=== PATIENT | female | born 1965 | race Caucasian/White ===

== ENCOUNTER → 2020-09-27 07:57 | Outpatient (BNVA) | payer OTHER, SELFPAY | PROVIDERS: Visit Provider Obstetrics & Gynecology ==

== ENCOUNTER 2020-10-06 14:50 | Outpatient (REF) | payer OTHER, SELFPAY ==
--- NOTE | ~2020-10-06 | US_ITS ---
EXAMINATION: PELVIC ULTRASOUND CLINICAL INFORMATION: Pain COMPARISON: None TECHNIQUE: Transabdominal and transvaginal pelvic ultrasound was performed. Transvaginal exam was performed for better visualization of the uterus and ovaries. FINDINGS: The uterus is anteverted and measures 5.3 x 2.4 x 3.3 cm in dimension. There are 2 small hypoechoic lesions suggestive of small cysts in the right uterine body measuring 4 mm. No other focal uterine lesion is seen. Endometrial thickness is normal measuring 0.2 cm. The ovaries are normal. The right ovary measures 1.4 x 2.7 x 1.1 cm and the left ovary measures 1.3 x 0.9 x 0.8 cm. There is no fluid in the pelvis. US/US pelvic and transvaginal IMPRESSION: 2 small uterine cysts. Otherwise unremarkable exam.
== END 2020-10-06 14:51 | disposition home or self-care (01) ==
LOC: HO.US 14:50
PROVIDERS: Visit Provider Obstetrics & Gynecology
DX: R10.2 Pelvic and perineal pain (principal)
CPT/HCPCS: 76830; 76856

== ENCOUNTER → 2020-10-15 10:58 | Outpatient (BNVA) | payer OTHER, SELFPAY | PROVIDERS: Visit Provider Obstetrics & Gynecology ==

== ENCOUNTER 2021-01-13 15:31 | Outpatient (REF) | payer OTHER, SELFPAY ==
--- NOTE | ~2021-01-13 | MM_ITS ---
EXAMINATION: MM SCREENING DIGITAL BREAST TOMOSYNTHESIS, BILATERAL CLINICAL INFORMATION: Screening. Asymptomatic. The lifetime risk of breast cancer based on the Tyrer-Cuzick Model is 12%. COMPARISON: Outside mammography: 11/26/2019, image 02/11/2017, 07/27/2016 ([facility]). TECHNIQUE: Digital breast tomosynthesis is performed in both the craniocaudal and mediolateral oblique views along with computer-aided detection (CAD). Synthesized 2D images are generated from the tomosynthesis. FINDINGS: The breasts are heterogeneously dense, which may obscure small masses (ACR BI-RADS breast composition Category c). There are no significant masses, abnormal calcifications, or other abnormalities. Breast tissue composition borders on average fibroglandular. Parenchymal pattern is similar to prior outside studies. There is no developing density. The axilla and skin contours are unremarkable. MM/MM tomosynthesis screening BI IMPRESSION: No mammographic evidence of malignancy. ASSESSMENT: BI-RADS 1: Negative RECOMMENDATION: Routine annual mammography screening. This patient's information was entered into a reminder system with a target due date for their next mammogram.
== END 2021-01-13 15:32 | disposition home or self-care (01) ==
LOC: HO.MAMMO 15:31
PROVIDERS: PCP Internal Medicine; Visit Provider Internal Medicine
DX: Z12.31 Encounter for screening mammogram for malignant neoplasm of breast (principal)
CPT/HCPCS: 77063; 77067

== ENCOUNTER 2022-01-31 16:05 | Outpatient (REF) | payer OTHER, SELFPAY ==
--- NOTE | ~2022-01-31 | MM_ITS ---
EXAMINATION: MM SCREENING DIGITAL BREAST TOMOSYNTHESIS, BILATERAL CLINICAL INFORMATION: Screening. Asymptomatic. The lifetime risk of breast cancer based on the Tyrer-Cuzick Model is 12%. COMPARISON: Mammography: 01/13/2021; outside mammography 11/26/2019, 10/10/2017, 07/27/2016 ([facility] TECHNIQUE: Digital breast tomosynthesis is performed in both the craniocaudal and mediolateral oblique views along with computer-aided detection (CAD). Synthesized 2D images are generated from the tomosynthesis. Additional right CC view is provided. FINDINGS: The breasts are heterogeneously dense, which may obscure small masses (ACR BI-RADS breast composition Category c). Parenchymal pattern is similar to prior studies and there is no interval mass or developing density or architectural abnormality. Breast tissue composition borders on average fibroglandular. No abnormal calcifications. The axilla and skin contours are unremarkable. MM/MM tomosynthesis screening BI IMPRESSION: No mammographic evidence of malignancy. ASSESSMENT: BI-RADS 1: Negative RECOMMENDATION: Routine annual mammography screening. This patient's information was entered into a reminder system with a target due date for their next mammogram.
== END 2022-01-31 16:06 | disposition home or self-care (01) ==
LOC: HO.MAMMO 16:05
PROVIDERS: Visit Provider Internal Medicine
DX: Z12.31 Encounter for screening mammogram for malignant neoplasm of breast (principal)
CPT/HCPCS: 77063; 77067

== ENCOUNTER 2023-02-02 15:41 | Outpatient (REF) | payer OTHER, SELFPAY | END 2023-02-02 15:42 | disposition home or self-care (01) | LOC: HO.MAMMO 15:41 | PROVIDERS: PCP Nurse Practitioner Family; Visit Provider Internal Medicine | DX: Z12.31 Encounter for screening mammogram for malignant neoplasm of breast (principal) | CPT/HCPCS: 77063; 77067 ==

== ENCOUNTER → 2023-02-02 16:15 | Outpatient (BNV) | payer OTHER, SELFPAY | PROVIDERS: PCP Nurse Practitioner Family; Visit Provider Radiology Diagnostic Radiology | DX: Z12.31 Encounter for screening mammogram for malignant neoplasm of breast (principal) | CPT/HCPCS: 77063; 77067 ==

== ENCOUNTER 2024-02-12 15:50 | Outpatient (REF) | payer OTHER, SELFPAY ==
--- NOTE | ~2024-02-12 | MM_ITS ---
EXAMINATION: MM SCREENING DIGITAL BREAST TOMOSYNTHESIS, BILATERAL CLINICAL INFORMATION: Screening. Asymptomatic. COMPARISON: Mammography: Comparison is made with available priors TECHNIQUE: Digital breast mammography with tomosynthesis is performed in both the craniocaudal and mediolateral oblique views along with computer-aided detection (CAD). FINDINGS: The breasts are heterogeneously dense, which may obscure small masses (ACR BI-RADS breast composition Category c). There are no significant masses, abnormal calcifications, or other abnormalities. MM/MM tomosynthesis screening BI IMPRESSION: No mammographic evidence of malignancy. ASSESSMENT: BI-RADS BI-RADS 1 - Negative RECOMMENDATION: Routine annual mammography screening. 1 year F/U This examination should not preclude the clinical evaluation of a suspicious palpable abnormality. This patient's information was entered into a reminder system with a target due date for their next mammogram. Electronically signed by: Megan Ross DO 02/21/2024 08:17 AM MATHIEU
== END 2024-02-12 15:51 | disposition home or self-care (01) ==
LOC: HO.MAMMO 15:50
PROVIDERS: PCP Internal Medicine; Visit Provider Internal Medicine
DX: Z12.31 Encounter for screening mammogram for malignant neoplasm of breast (principal)
CPT/HCPCS: 77063; 77067

== ENCOUNTER → 2024-02-12 16:00 | Outpatient (BNV) | payer OTHER, SELFPAY | PROVIDERS: PCP Internal Medicine; Visit Provider Internal Medicine | DX: Z12.31 Encounter for screening mammogram for malignant neoplasm of breast (principal) | CPT/HCPCS: 77063; 77067 ==

== ENCOUNTER 2025-02-13 15:58 | Outpatient (REF) | payer OTHER, SELFPAY ==
--- NOTE | ~2025-02-13 | MM_ITS ---
EXAMINATION: MM SCREENING DIGITAL BREAST TOMOSYNTHESIS, BILATERAL CLINICAL INFORMATION: Screening. Asymptomatic. COMPARISON: Mammography: Comparison is made with available priors TECHNIQUE: Digital breast mammography with tomosynthesis is performed in both the craniocaudal and mediolateral oblique views along with computer-aided detection (CAD). FINDINGS: The breasts are heterogeneously dense, which may obscure small masses. There are no significant masses, abnormal calcifications, or other abnormalities. MM/MM tomosynthesis screening BI IMPRESSION: No mammographic evidence of malignancy. ASSESSMENT: BI-RADS Category 1: Negative RECOMMENDATION: Routine annual mammography screening. 1 year F/U This examination should not preclude the clinical evaluation of a suspicious palpable abnormality. This patient's information was entered into a reminder system with a target due date for their next mammogram. Electronically signed by: Megan Ross DO 02/17/2025 12:06 PM MATHIEU JOHNSON
--- OUTSIDE RECORDS SUMMARY | 2025-02-13 16:02 | XMS_ITS | Encounter Summary ---
Author Organization [employer] Address [address] [facility] [address] [place] [address] Care Team Providers Care Customer Assistant Name Role Phone Jeny Long DO Primary Care Provider [phone] Encounter Details Date Type Department Care Team (Late st Contact Info) Description 01/14/2025 Orders Only [facility] [address] [place] [address] Jeny Long DO [address] [place] [address] Social History Tobacco Use Types Packs/Day Years Used Date Smoking Tobacco: Never Passive Smoke Exposure: Never Smokeless Tobacco: Never Alcohol Use Standard Drinks/Week Comments Yes 0 (1 standard drink = 0.6 oz pure alcohol) Few times per month. 1-2 beers, glass of wine. Alcohol Answer Date Recorded How often do you have a drink containing alcohol ? 0 12/27/2024 How many drinks containing a lcohol do you have on a typical day when you are drinking? 0 12/27/2024 How often do you have six or more drinks on one occasion? 0 12/27/2024 Housing Stability Answer Date Recorded What is your housing situation today? I have manisharon goodrich 12/27/[address] you li ve. Do you have problems with any of the following? None of the above 12/27/2024 Food Insecurity Answer Date Recorded Within the past 12 months, y ou worried that your food would run out before you got money to buy more: Never True 12/27/2024 Within the past 12 months,th e food you bought just didn't last and you didn't have enough money to get more: Never True Transportation Answer Date Recorded In the past 12 months, has l ack of transportation kept you from medical appts, meetings, work or from getting things needed for daily living? No 12/27/2024 Intimate Partner Violence Answer Date R ecorded Within the last year, have y ou been afraid of your partner or ex-partner? 2 12/27/2024 Within the last year, have y ou been humiliated or emotionally abused in other ways by your partner or ex-partner? 2 Within the last year, have y ou been kicked, hit, slapped, or otherwise physically hurt by your partner or ex-partner? 2 12/27/2024 Within the last year, have y ou been raped or forced to have any kind of sexual activity by your partner or ex-partner? 2 12/27/2024 Utilities Answer Date Recorded In the past 12 months, has t he electric, gas, oil or water company threatened to shut off services in your home? No 12/27/2024 Depression Answer Date Recorded Patient Health Questionnaire-2 Score 0 12/27/2024 Internet Access Answer Date Recorded Internet Access Q1 Yes 12/27/2024 Internet Access Q2 Not on file 12/27/2024 Education Answer Date Recorded What is the highest level of school you have completed or the highest degree you have received? High school graduate 02/28/2024 Comments No Sex and Gender Information Value Date Recorded Sex Assigned at Female 03/15/2022 9:03 AM EST Legal Sex Female 8:40 PM EDT Gender Identity Female 03/15/2022 9:01 AM EST Sexual Orientation Straight 06/07/2022 3: 56 PM EST Occupation Industry Job Start Date Job End Date Not on file Not on file Not on file Not on file documented as of this encounter Plan of Treatment Upcoming Encounters Date Type Department Care Team (Late st Contact Info) Description 12/25/2025 3:45 PM EDT Office Visit [facility] [address] [place] [address] Jeny Long DO [address] [place] [address] documented as of this encounter Procedures Procedure Name Priority Date/Time Associated Diagnosis Comments COLOGUARD COLON CANCER SCREENING (EXTERNAL RESULTS ONLY) Routine 12/29/2024 1:47 PM EDT documented in this encounter Results * Cologuard Cancer Screening (External Result Only) (12/29/2024 1:47 PM EDT) Stool (Rectum) Jeny Long DO POINT OF CARE TEST ENTER/EDIT ORDERABLES Final Result documented in this encounter Visit Diagnoses Not on filedocumented in this encounter Care Teams Customer Assistant Relationship Specialty Start Date End Date Jeny Long DO [address] [place] [id number] PCP - General Family Medicine 04/03/24 documented as of this encounter
--- OUTSIDE RECORDS SUMMARY | 2025-02-13 16:02 | XMS_ITS | Encounter Summary ---
Author Organization [facility] Address [address] [place] [address] Phone Care Team Providers Care Hat Stock Laminating Machine Operator Name Role Phone Godwin Reed MD Primary Care Provider [phone] Pcp, Unknown Primary Care Provider UnavailKaryna Erwin MD Primary Care Provider [phone] Karyna Espinoza MD Unavailable [phone] Encounter Details Date Type Department Care Team (Late st Contact Info) Description 10/29/2019 Ancillary Orders Virtual Department [address] [place] [address] Godwin Reed MD [address] [place] [id number] Breast cancer screening by mammogram Social History Tobacco Use Types Packs/Day Years Used Date Smoking Tobacco: Never Assessed Comments No Sex and Gender Information Value Date Recorded Sex Assigned at Not on file Legal Sex Female 9:40 PM EDT Gender Identity Not on file Sexual Orientation Not on file documented as of this encounter Plan of Treatment Not on file documented as of this encounter Results * BI MAMMOGRAM SCREENING WITH TOMOSYNTHESIS WITH CAD (BILATERAL) (11/26/2019 3:19 PM EDT) Anatomical Region Laterality Modality Breast Left, Breast Right, Breast Bilateral Bila teral Mammography 11/26/2019 7:40 PM EDT Impressions 11/26/2019 7:44 PM EDT BILATERAL BREASTS: Negative, no evidence of malignancy. Normal interval follow- up is recommended in 12 months. BI-RADS: BI-RADS CATEGORY: 1 - Negative. DENSITY: The breast tissue is heterogeneously dense, which may obscure small masses Narrative 11/26/2019 7:44 PM EDT STUDY: Bilateral screening mammography with tomosynthesis and CAD TECHNIQUE: Bilateral full-field digital screening mammography is obtained and read in conjunction with computer-aided detection. Tomosynthesis as well as 2-D C view imaging were obtained. COMPARISON: Comparison made to multiple prior, most recent October 10, 2017, and most remote September 28, 2011. BREAST COMPOSITION: The breasts are heterogeneously dense, which may obscure small masses. BILATERAL BREASTS: No significant masses, calcifications or other abnormalities are seen. Godwin Reed MD IMG MG EXAMS Final Result documented in this encounter Visit Diagnoses Diagnosis Breast cancer screening by mammogram Breast cancer screening by mammogram documented in this encounter Care Teams Hat Stock Laminating Machine Operator Relationship Specialty Start Date End Date Godwin Reed MD [address] [place] [address] PCP - General Obstetrics and Gynecology 08/29/17 11/25/19 Pcp, Unknown PCP - General 11/26/19 08/07/22 Karyna Espinoza MD [address] [place] [address] PCP - General Internal Medicine 08/08/22 Karyna Espinoza MD [address] [place] [address] Insurance Assigned Provider 01/20/24 documented as of this encounter Additional Source Comments The information contained in this document represents components of the legal health record. It is not the complete legal health record.[facility]
--- OUTSIDE RECORDS SUMMARY | 2025-02-13 16:02 | XMS_ITS | Encounter Summary ---
Author Organization [facility] Address [address] [place] [id number] Phone Care Team Providers Care Correctional Captain Name Role Phone Godwin Reed MD Primary Care Provider [phone] Pcp, Unknown Primary Care Provider UnavailKaryna Erwin MD Primary Care Provider [phone] Karyna Espinoza MD Unavailable [phone] Encounter Details Date Type Department Care Team (Late st Contact Info) Description 08/29/2017 Ancillary Orders Virtual Department [address] [place] [address] Godwin Reed MD [address] [place] [phone] Breast screening Social History Tobacco Use Types Packs/Day Years Used Date Smoking Tobacco: Never Assessed Comments Unknown Sex and Gender Information Value Date Recorded Sex Assigned at Not on file Legal Sex Female 9:40 PM EDT Gender Identity Not on file Sexual Orientation Not on file documented as of this encounter Plan of Treatment Not on file documented as of this encounter Results * BI MAMMOGRAM SCREENING WITH TOMOSYNTHESIS WITH CAD (BILATERAL) (10/10/2017 7:53 AM EDT) Anatomical Region Laterality Modality Breast Left, Breast Right, Breast Bilateral Bila teral Mammography 10/10/2017 8:09 AM EDT Impressions 10/10/2017 8:13 AM EDT No mammographic change indicative of malignancy. Annual screening is recommended. BI-RADS CATEGORY: 1 - Negative. DENSITY: There are scattered fibroglandular densities. POS -[id number] Narrative 10/10/2017 8:13 AM EDT Bilateral full-field digital screening mammography is obtained and read in conjunction with computer-aided detection. Tomosynthesis as well as 2-D C view imaging of both breasts in two planes also obtained. Comparison made to multiple prior, most recent 07/27/2016, and most remote 01/11/2011. No dominant mass, architectural distortion, worrisome asymmetry, or suspicious calcification is identified. No skin or nipple finding of concern is appreciated. Procedure Note Vikash Hanks MD - 10/10/2017 Bilateral full-field digital screening mammography is obtained and read inconjunction with computer-aided detection. Tomosynthesis as well as 2-D Cview imaging of both breasts in two planes also obtained. Comparison madeto multiple prior, most recent 07/27/2016, and most remote 01/11/2011. No dominant mass, architectural distortion, worrisome asymmetry, orsuspicious calcification is identified. No skin or nipple finding ofconcern is appreciated. IMPRESSION: No mammographic change indicative of malignancy. Annual screening isrecommended. BI-RADS CATEGORY: 1 - Negative. DENSITY: There are scattered fibroglandular densities. POS -[id number] Godwin Reed MD IMG MG EXAMS Final Result documented in this encounter Visit Diagnoses Diagnosis Breast screening Breast screening, unspecified Breast screening Breast screening, unspecified documented in this encounter Care Teams Correctional Captain Relationship Specialty Start Date End Date Godwin Reed MD [address] [place] [id number] PCP - General Obstetrics and Gynecology 08/29/17 11/25/19 Pcp, Unknown PCP - General 11/26/19 08/07/22 Karyna Espinoza MD [address] [place] [id number] PCP - General Internal Medicine 08/08/22 Karyna Espinoza MD [address] [place] [phone] [email or web address] Insurance Assigned Provider 01/20/24 documented as of this encounter Additional Source Comments The information contained in this document represents components of the legal health record. It is not the complete legal health record.[facility]
--- OUTSIDE RECORDS SUMMARY | 2025-02-13 16:02 | XMS_ITS | Encounter Summary ---
Author Organization [employer] Address [address] [facility] [address] [place] [address] Care Team Providers Care Sod Cutter Name Role Phone Jeny Long DO Primary Care Provider [phone] Reason for Visit * Reason Onset Date Comments Med Refill 11/06/2024 Med Dose Change 11/06/2024 Encounter Details Date Type Department Care Team (Late st Contact Info) Description 11/06/2024 Telephone [facility] [address] [place] [address] Jeny Long DO [address] [place] [address] Med Refill; Med Dose Change Social History Tobacco Use Types Packs/Day Years Used Date Smoking Tobacco: Never Passive Smoke Exposure: Never Smokeless Tobacco: Never Alcohol Use Standard Drinks/Week Comments Yes 0 (1 standard drink = 0.6 oz pure alcohol) Few times per month. 1-2 beers, glass of wine. Housing Stability Answer Date Recorded What is your housing situation today? I have mani goodrich 09/04/[address] you li ve. Do you have problems with any of the following? None of the above 09/04/2023 Food Insecurity Answer Date Recorded Within the past 12 months, y ou worried that your food would run out before you got money to buy more: Never True 09/04/2023 Within the past 12 months,th e food you bought just didn't last and you didn't have enough money to get more: Never True Transportation Answer Date Recorded In the past 12 months, has l ack of transportation kept you from medical appts, meetings, work or from getting things needed for daily living? No 09/04/2023 Utilities Answer Date Recorded In the past 12 months, has t he electric, gas, oil or water company threatened to shut off services in your home? No 09/04/2023 Depression Answer Date Recorded Patient Health Questionnaire-2 Score 0 09/04/2023 Education Answer Date Recorded What is the [...] on file documented as of this encounter Miscellaneous Notes * Telephone Encounter - BETO Pimentel - 11/06/2024 2:38 PM EDT Routed to Dr Espinoza to advise on patients request to increase her Mounjaro dose * Telephone Encounter - Ananya Snow - 11/06/2024 2:19 PM EDT Patient called for refill of the following medication Tirzepatide (Mounjaro) 10 MG/0.5ML solution auto-injector Patient would be open to an increase at your decreation Patient reports the side effects have subsided so she is no longer dealing with any like before andbelieves it may have just been nerves due to wedding. Patient was deciding if she wanted to continue taking this medication but when she noticed that it was in fact helping her lose weight she decided to stay on the medication Patient has lost 12 lbs and her current weight as of today is 165.8 Please use the following pharmacy [id number] - [address] [address] JEROME #: [id number] documented in this encounter Plan of Treatment Upcoming Encounters Date Type Department Care Team (Late st Contact Info) Description 12/25/2025 3:45 PM EDT Office Visit [facility] [address] [place] [address] Jeny Long DO [address] [place] [address] documented as of this encounter Visit Diagnoses Not on filedocumented in this encounter Care Teams Sod Cutter Relationship Specialty Start Date End Date Jeny Long DO [address] [place] [address] PCP - General Family Medicine 04/03/24 documented as of this encounter
--- OUTSIDE RECORDS SUMMARY | 2025-02-13 16:02 | XMS_ITS | Clinical Summary ---
Author Organization [facility] Address [address] [place] [address] Phone Care Team Providers Care Job Hand Name Role Phone Karyna Espinoza MD Primary Care Provider [phone] Karyna Espinoza MD Unavailable [phone] Allergies Active Allergy Reactions Criticality Noted Date Comments Amoxicillin 04/24/2022 Other reaction(s): hives Sulfamethoxazole-Trimethopri m 04/24/2022 Other reaction(s): hives Medications ibuprofen (ADVIL,MOTRIN) 600 MG tablet TAKE ONE TABLET BY MOUTH ONE HOUR PRIOR TO DENTAL APPOINTMENT AND ONE TABLET EVERY 6 HOURS FOR PAIN 3 Active SUMAtriptan (IMITREX) 50 MG tablet 1 po PRN migraine, may repeat 1x in 24 hours Active collagen, hydrolysate, bovine, (COLLAGEN, HYDR, BOVINE,, BULK,) 100 % Powd Active magnesium hydroxide (DAUGHERTY CHEWS) 311 MG Chew Take by mouth. Act chadd phentermine 15 MG capsule Take 15 mg by mouth. 4 Active medium chain triglycerides (MCT OIL) 7.7 kcal/mL oil Take 15 mL by mouth. Active turmeric root extract 500 mg Cap tumeric Active Active Problems Problem Noted Date Diagnosed Date Gastroesophageal reflux disease without esophagi tis 06/01/2022 08/08/2022 Overview (08/08/2022): Last Assessment & Plan: Triggered by tomato sauce and bread. Encouraged to keep food log. Has been improving since starting probiotic. Will continue to discuss and monitor. Migraine with aura and witho ut status migrainosus, not intractable 06/01/2022 08/08/2022 Overview (08/08/2022): Last Assessment & Plan: Managed with Advil, but has Imitrex and Zofran if needed. Have increased to once per month from once every few months, but is decreasing in severity. Neuro exam normal. Will call clinic if migraines worsen, or continue to become more frequent. Arthritis 04/24/2022 08/08/2022 Unilateral inguinal hernia without obstruction o r gangrene 04/24/2022 08/08/2022 Obesity with body mass index 30 or greater 04/2408/08/2022 Immunizations No known immunizations Family History Medical History Relation Comments Breast cancer Neg Hx Social History Tobacco Use Types Packs/Day Years Used Date Smoking Tobacco: Never Smokeless Tobacco: Never Education Answer Date Recorded Are you interested in more education? Not on jean e 08/11/2022 Are you concerned about learning? Not on file 08/11/2022 No 08/11/2022 No 08/11/2022 Digital Access Answer Date Recorded No 09/09/2022 No 09/09/2022 Reliable internet access at home? Not on file 09/09/2022 Device with a working camera? Not on file Comments No Sex and Gender Information Value Date Recorded Sex Assigned at Not on file Legal Sex Female 9:40 PM EDT Gender Identity Not on file Sexual Orientation Not on file Last Filed Vital Signs Vital Sign Reading Time Taken Comments Blood Pressure 145/84 12/05/2023 9:11 AM EDT Pulse 68 12/05/2023 9:11 AM EDT Temperature 36.7 C (98 F) 12/05/2023 9:11 AM EDT Respiratory Rate 16 12/05/2023 9:11 AM EDT Oxygen Saturation 99% 12/05/2023 9:11 AM EDT Inhaled Oxygen Concentration - - Weight 95.3 kg (210 lb) 08/08/2022 6:34 PM EDT Height 167.6 cm (5' 6 ) 08/08/2022 6:34 PM EDT Body Mass Index 33.89 08/08/2022 6:34 PM EDT Plan of Treatment Health Maintenance Due Date Last Done Comments DEPRESSION SCREENING 1977 HEPATITIS C SCREENING 12/23/1983 HIV ONE-TIME SCREENING (18-6 5 YEARS) 12/23/1983 PAP SMEAR 1986 SMOKING STATUS SCREENING (On ce After 26 Yrs) 12/23/1991 SCREENING FOR DIABETES 2000 COLOGUARD 2010 COLONOSCOPY 2010 COLORECTAL CANCER SCREENING 2010 FIT TEST 2010 FOBT 2010 SIGMOIDOSCOPY 2010 VIRTUAL COLONOSCOPY 2010 PNEUMOCOCCAL VACCINES (50+ years) (1 of 1 - PCV) 12/23/2015 MAMMOGRAM 11/25/2021 11/26/2019, 11/26/2019, 10/10/2017 INFLUENZA VACCINE (#1) 2024 , 01/11/2021 COVID-19 VACCINE (4 - 2024-2 6 season) 2024 03/22/2021, 08/22/2020, 08/01/2020 LIPID PANEL 01/11/2028 01/10/2023 Adult Td,Tdap Booster 09/03/2033 09/04/2023 RSV VACCINE (1 - 1-dose 75+ series) 2040 ZOSTER VACCINES Completed 10/03/2021, 05/20/2021 HEPATITIS A VACCINES Aged Out No long er eligible based on patient's age to complete this topic HIB VACCINES Aged Out No longer eligi ble based on patient's age to complete this topic MENINGOCOCCAL VACCINES (ACWY) Aged Out No longer eligible based on patient's age to complete this topic MENINGOCOCCAL VACCINES (B) Aged Out N o longer eligible based on patient's age to complete this topic Medical Devices Not on file Procedures Procedure Name Priority Date/Time Associated Diagnosis Comments BI MAMMOGRAM SCREENING WITH TOMOSYNTHESIS WITH CAD (BILATERAL) Routine 11/26/2019 3:19 PM EDT Breast cancer screening by mammogram from Last 3 Months or Most Recently Relevant to Health Maintenance Results * BI MAMMOGRAM SCREENING WITH TOMOSYNTHESIS [...] masses, calcifications or other abnormalities are seen. us Godwin Reed MD IMG MG EXAMS Final Result from Last 3 Months or Most Recently Relevant to Health Maintenance Insurance HMO Member Subscriber Plan / Payer (Ef fective 2017-Present) Name:Faina Caballero Relation to Subscriber:Self Name:Faina Caballero Payer ID:Not on file Type:HMO [address]: [address] POS EPO [facility] [place] [address] [place] [address] [place] [address] [place] [address] HMO [facility] EPO [facility] HMO O Member Subscriber Plan / Payer (Ef fective 2017-Present) Name:Faina Caballero Relation to Subscriber:Self Name:Faina Caballero Payer ID:Not on file Type:O Address: [address] POS EPO O Member Subscriber Plan / Payer (Ef fective 2017-Present) Name:Faina Caballero Relation to Subscriber:Self Name:Faina Caballero Payer ID:Not on file Type:O Address: [address] POS EPO [facility] HMO [facility] POS EPO Care Teams Job Hand Relationship Specialty Start Date End Date Karyna Espinoza MD [address] [place] [address] PCP - General Internal Medicine 08/08/22 Karyna Espinoza MD [address] [place] [address] Insurance Assigned Provider 01/20/24 Additional Source Comments The information contained in this document represents components of the legal health record. It is not the complete legal health record.[facility]
--- OUTSIDE RECORDS SUMMARY | 2025-02-13 16:02 | XMS_ITS | Encounter Summary ---
Author Organization [employer] Address [address] [facility] 7 [place] [address] Care Team Providers Care User Interface Engineer Name Role Phone Jeny Long DO Primary Care Provider [phone] Encounter Details Date Type Department Care Team (Late st Contact Info) Description 01/14/2025 Results Follow-Up [facility] MEDICAL [address] [place] [address] Jeny Long DO [address] [place] [address] Cologuard Cancer Screening (External Result Only) Social History Tobacco Use Types Packs/Day Years [...] your housing situation today? I have mani kp 12/27/[address] you li [...] 12/25/2025 3:45 PM EDT Office Visit Kristen [facility] [address] [place] [address] Jeny Long DO [address] [place] [address] documented as of this encounter Visit Diagnoses Not on filedocumented in this encounter Care Teams User Interface Engineer Relationship Specialty Start Date End Date Jeny Long DO [address] [place] [address] PCP - General Family Medicine 04/03/24 documented as of this encounter
--- OUTSIDE RECORDS SUMMARY | 2025-02-13 16:02 | XMS_ITS | Clinical Summary ---
Author Organization [employer] Address [address] [place] [address] 7 [place] [address] Care Team Providers Care Traveler Changer Name Role Phone Jeny Long DO Primary Care Provider [phone] Allergies Active Allergy Reactions Criticality Noted Date Comments Amoxicillin 04/24/2022 Other reaction(s): hives Sulfamethoxazole-Trimethopri m 04/24/2022 Other reaction(s): hives Medications SUMAtriptan (Imitrex) 50 MG tablet As needed Active Magnesium Hydroxide (MAGNESIA PO) Take by mouth. A ctive Collagen Hydrolysate powder Active Tirzepatide (Mounjaro) 10 MG/0.5ML solution auto-injectorInd ications:Type 2 diabetes mellitus without complication, without long-term current use of insulin (HCC) Inject 10 mg under the skin 1 (one) time per week. 2 mL 3 12/05/19 25 Active polyethylene glycol, PEG, 3350 (MiraLax) 17 GM/SCOOP powderIndication s:Drug-induced constipation Take 17 g by mouth if needed each day (constipation). 527 g 2 12/20/19 25 Active nitrofurantoin, macrocrystal-mon ohydrate, (Macrobid) 100 MG capsule Take 100 mg by mouth every 12 (twelve) hours. 12/23/19 25 Active estradiol (Estrace) 0.1 MG/GM vaginal creamIndications :Frequent UTI 0.5 g intravaginally twice per week 42.5 g 12/28/19 25 Active phenazopyridine (Pyridium) 100 MG tabletIndication s:Frequent UTI Take 1 tablet (100 mg) by mouth if needed in the morning, at noon, and at bedtime for bladder spasms. 30 tablet 12/28/19 25 025 Active Problems Problem Noted Date Diagnosed Date Overweight with body mass in dex (BMI) of 28 to 28.9 in adult 01/30/2024 Colitis 09/04/2023 Overview (09/04/2023): Images from the original note were not included. 02/08/2016: Colon cancer screening 09/04/2023 Overview (09/04/2023): Images from the original note were not included. Adrien Andrade Colonoscopy 02/07/2016: RANDA (obstructive sleep apnea) 08/02/2023 Overview (09/04/2023): Images from the original note were not included. Uses CPAP machine nightly. Engaged with sleep medicine. Type 2 diabetes mellitus wit hout complication, without long-term current use of insulin 01/17/2023 Overview (09/04/2023): Lab Results Component Value Date HGBA1C 6.5 (H) 01/10/2023 Declined medication - wanted to focus on lifestyle first. Engaged with weight management - lost 36lbs! Intermittent fasting 29/11 schedule. Reinforced lifestyle changes - eating well and exercise. Due for labs. Foot exam: 09/04/23. No loss of protective sensation. Encounter to discuss test results 01/17/2023 Overview (02/18/2023): All available lab results reviewed. Given time to ask questions and discuss health implications. Snoring 01/08/2023 Overview (01/08/2023): Boyfriend telling her she has started to snore. Feeling lethargic during the day, not falling asleep unintentionally. Discussed options - agreeable to sleep study referral. Cystitis 08/11/2022 Assessment & Plan (08/11/2022 5:13 PM EDT): UA with Leuks 1+. Will send for culture. Discussed options, wait for culture results or treat empirically. Pt would like to treat. Discussed treatment options. Will treat with Macrobid. Reviewed medication, administration, and potential side effects. Routine general medical exam ination at a health care facility 06/01/2022 Overview (09/04/2023): CPE done 09/04/23. HEALTH CARE MAINTENANCE: Colonoscopy (age 45-75): 2016, Adrien Andrade. 10 year recall. Mammogram (age 40-74): 2022 - goes yearly - [facility] [place]. AAA Screen (Fam Hx AAA): No known family hx. LDCT (smoke >30 pack year, age 55-80): Never smoker. DEXA (age 60 with RF, age 65): Age 57. CIVIL DIVISION DEPUTY SHERIFF: Outside CIVIL DIVISION DEPUTY SHERIFF: [facility] - Dr. Reed. LMP: Menopause - Age 47. No vaginal bleeding since that time. Last PAP Smear: Yearly. Years ago was abnormal, but multiple normal exams since that time. EYES: Every 2 years. DENTAL: Every 3 months. DIET: Intermittent fasting. Chicken, fish, vegetables. Avoids sugar, processed foods. Drinking lots of water. Engaged with body joiner. EXERCISE: Walking, biking, lifting weights. Floor strengthening. IMMUNIZATIONS: Tetanus (every 10 years): Not sure. No record in UTIS. Done today in clinic. Pneumococcal (age 65): Age 57. Shingrix (age 50): x2, in 2021. COVID: x 3, 2020. No boosters, does not want. FLU: 04/2023. Migraine with aura and witho ut status migrainosus, not intractable 06/01/2022 Assessment & Plan (06/01/2022 12:15 PM EST): Managed with Advil, but has Imitrex and Zofran if needed. Have increased to once per month from once every few months, but is decreasing in severity. Neuro exam normal. Will call clinic if migraines worsen, or continue to become more frequent. Unilateral inguinal hernia without obstruction o r gangrene 04/24/2022 Arthritis 04/24/2022 Overview (02/18/2023): Discussed Arthritis treatment and OTC pain management. Reviewed NSAID use and safety. Resolved Problems Problem Noted Date Diagnosed Date Resolved Date BMI 33.0-33.9,adult 03/02/2023 01/30/20 24 Overview (03/02/2023): Highest weight: 225 Comorbidities: Type 2 DM Dietary plan: intermittent fasting, moderate carbs Medications; none Exercise: walking daily Obesity, unspecified 04/24/2022 023 Obesity with body mass index 30 or greater 04/24/2022 01/30/2024 Overview (01/08/2023): Baseline weight 170lbs 7 years ago. Now around 212lbs. Has tried intermittent fasting, was going well but stopped. Feeling lethargic, worsening arthritis - both of which pt attributes to weight gain. Discussed options - will check labs. Has been years since labs have been done. Agreeable to referral to weight management. Diet and exercise counseling done 01/08/23. Assessment & Plan (01/08/2023 6:42 PM EDT): I suggest a balanced diet of fruits, vegetables, whole grains, lean proteins, and healthy fats while limiting processed foods, added sugars, and unhealthy fats. Small, consistent changes can reduce chronic disease risks. Track your meals with a food diary, be mindful of portion sizes, and address barriers to healthy eating. Engage in both aerobic and strength exercises, aiming for 150 minutes of moderate- intensity activity weekly, with two strength-training sessions. Choose enjoyable workouts and integrate physical activities like taking stairs into your day-to-day life. Encounters Date Type Department Care Team Description 01/14/2025 Results Follow-Up [facility] [address] [place] [address] Jeny Long DO Cologuard Cancer Screening (External Result Only) 01/14/2025 Orders Only [facility] [address] [place] [address] Jeny Long DO 12/27/2024 8:30 AM EDT Office Visit [facility] [address] [place] [address] Karyna Espinoza MD Frequent UTI (Primary Dx); Other migraine without status migrainosus, not intractable 12/23/2024 Orders Only [facility] Information Management [address] [place] [address] Jeny Long DO 12/23/[address] [address] Jeny Long DO UTI; hospital discharge, obtain hospital discharge 12/19/2024 2:45 PM EDT Office Visit [address] [address] Jeny Long DO Drug-induced constipation (Primary Dx); Type 2 diabetes mellitus without complication, without long-term current use of insulin ([facility]) 12/05/[address] [address] Jeny Long DO Med Refill; Medication Problem 12/04/[address] [address] Karyna Espinoza MD Type 2 diabetes mellitus without complication, without long-term current use of insulin (CMS/HCC) 12/03/2024 11:[address] [facility] NUTRITION [address] [place] [address] Diabetes mellitus due to underlying condition without complication, without long-term current use of insulin (CMS/[facility]) (Primary Dx) 12/03/[address] [facility] NUTR[facility] [address] [place] [address] from Last 3 Months Immunizations Immunization Administration Dates Next Due Influenza Injectable Quadriv alant Preservative Free IIV4 MDCK 01/23/2022 Influenza injectable quadriv alent preservative free 04/19/2023,01/11/2021 Influenza, IIV3, injectable 01/11/2021 Influenza, seasonal, injecta ble, preservative free 01/10/2024 Pfizer Covid-19 Vaccine 12+ 03/22/2021,,08/01/2020 Tdap 09/04/2023 Zoster, Recombinant 10/03/2021,05/20/2021 Family History Medical History Relation Name Comments Crohn's disease Brother 1 Diabetes Brother 1 Hypertension Brother 2 Heart attack Father intestinal issues Maternal Grandmother Diabetes Mother GI problems Mother Glaucoma Mother Hypertension Mother Relation Name Status Comments Brother 1 Alive Brother 2 Alive Father Maternal Grandmother Mother Sister 1 Alive Sister 2 Alive Social History Tobacco Use Types Packs/Day Years Used Date Smoking Tobacco: Never Passive Smoke Exposure: Never Smokeless Tobacco: Never Tobacco Cessation:Counseling Given: Not Answered Alcohol Use Standard Drinks/Week Comments Yes 0 [...] housing situation today? I have mani goodrich 12/27/[address] you [...] file Not on file Not on file Last Filed Vital Signs Vital Sign Reading Time Taken Comments Blood Pressure 111/74 12/27/2024 8:30 AM EDT Pulse 62 12/27/2024 8:30 AM EDT Temperature 35.8 C (96.4 F) 12/19/2024 2:48 PM EDT Respiratory Rate 16 01/10/2024 3:09 PM EDT Oxygen Saturation 98% 12/27/2024 8:30 AM EDT Inhaled Oxygen Concentration - - Weight 72.6 kg (160 lb) 12/27/2024 8:30 AM EDT Height 168.9 cm (5' 6.5 ) 12/27/2024 8:30 AM EDT Body Mass Index 25.44 12/27/2024 8:30 AM EDT Plan of Treatment Upcoming Encounters Date Type Department Care Team (Late st Contact Info) Description 12/25/2025 3:45 PM EDT Office Visit Kristen [facility] [address] [place] [address] Jeny Long DO [address] [place] [address] Health Maintenance Due Date Last Done Comments CT Colonography 1965 FIT 1965 HIV Screening 1965 Sigmoidoscopy 1965 Eye Exam 12/23/1975 Hepatitis C Screening 12/23/1983 Hepatitis B Vaccines (1 of 3 - 19+ 3-dose series) 1984 Pneumococcal Vaccine: 50+ Years (1 of 2 - PCV) 1984 HPV/Cotest 12/23/1995 Mammogram 11/25/2021 11/26/2019, 11/14, 10/10/2017 Lipid Panel 01/11/2024 01/10/2023 Cervical Cancer Screening 03/03/2024 Pap Smear 03/03/2024 03/03/2021, 04/16/2020 Diabetes: Foot Exam 09/03/2024 09/04/2023, 09/04/2023, 09/04/2023, Additional history exists COVID-19 Vaccine (2024- season) 2024 03/22/2021, 08/22/2020, 08/01/2020 Influenza Vaccine (#1) 2024 , 04/19/2023, 01/23/2022, Additional history exists Diabetes: Hemoglobin A1C 06/18/2025 025, 09/04/2023, 01/10/2023 Diabetes: Urine Protein Screening 12/19/2025 12/19/2024, 09/04/2023 Alcohol/Substance Use Screening 12/27/2025 12/27/2024 Depression Screening 12/27/2025 12/27/2024, 12/28/19 25 Disability Screening 12/27/2025 12/27/2024 SDOH Screening 12/27/2025 12/27/2024 Tobacco Screening 12/27/2025 12/27/2024 FOBT 12/29/2025 12/29/2024 Colonoscopy 02/06/2026 02/07/2016, 02/07/2016 Colorectal Cancer Screening 12/30/2027 FIT DNA/Cologuard 12/30/2027 12/29/2024, 12/29/2024 DTaP/Tdap/Td Vaccines (2 - Td or Tdap) 09/03/2033 09/04/2023 RSV Patients and Patients Aged 60 years or older (1 - 1-dose 75+ series) 2040 Zoster Vaccines Completed 10/03/2021, 05/20/2021 HIB Vaccines Aged Out No longer eligi ble based on patient's age to complete this topic HPV Vaccines Aged Out No longer eligi ble based on patient's age to complete this topic Hepatitis A Vaccines Aged Out No long er eligible based on patient's age to complete this topic IPV Vaccines Aged Out No longer eligi ble based on patient's age to complete this topic Meningococcal B Vaccine Aged Out No l onger eligible based on patient's age to complete this topic Meningococcal Vaccine Aged Out No tequila dirk eligible based on patient's age to complete this topic RSV under 20 months Aged Out No longe r eligible based on patient's age to complete this topic Rotavirus Vaccines Aged Out No longer eligible based on patient's age to complete this topic Procedures Procedure Name Priority Date/Time Associated Diagnosis Comments COLOGUARD COLON CANCER SCREENING (EXTERNAL RESULTS ONLY) Routine 12/29/2024 1:47 PM EDT URINALYSIS, COMPLETE Routine 12/21/2024 9:03 AM EDT POCT GLYCOSYLATED HEMOGLOBIN (HGB A1C) Routine 12/19/2024 3:15 PM EDT Type 2 diabetes mellitus without complication, without long-term current use of insulin (CMS/HCC) ALBUMIN/CREATININE RATIO, RANDOM URINE Routine 12/19/2024 1:55 PM EDT Type 2 diabetes mellitus without complication, without long-term current use of insulin (CMS/HCC) LIPID PANEL, STANDARD Routine 01/10/2023 7:44 AM EDT Obesity with body mass index 30 or greater HM PAP/HPV Routine 03/03/2021 11:01 AM EST HM COLONOSCOPY Routine 02/07/2016 from Last 3 Months or Most Recently Relevant to Health Maintenance Results * Cologuard Cancer Screening (External Result Only) (12/29/2024 1:47 PM EDT) Stool (Rectum) [facility] POINT OF CARE TEST ENTER/EDIT ORDERABLES Final Result * Urinalysis Complete (12/21/2024 9:03 AM EDT) Urine (Urine, Random) Result [facility] URINE ORDERABLES Final Res ult * POCT glycosylated hemoglobin (Hgb A1c) (12/19/2024 3:15 PM EDT) Pathologist [facility] Hemoglobin A1C 5.3 4.0 - 5.7 % Blood Capillary blood specimen / Unknown 12/19/2024 3:15 PM EDT Result [facility] POINT OF CARE TEST ENTER/EDIT ORDERABLES Final Result * Albumin/Creatinine Ratio, Random Urine (12/19/2024 1:55 PM EDT) Pathologist [facility] Creatinine, Random Urine 120.2 Not Estab. mg/dL [facility] 1 Albumin, Urine 10.5 Not Estab. ug/mL [facility] 1 Albumin/Creatini ne Ratio 9 0 - 29 mg/g creat [facility] 1 Comment: Normal: 0 - 29 Moderately increased: 30 - 300 Severely increased: >300 Urine (Urine, Random) 12/19/2024 1:55 PM EDT 12/19/2024 Narrative Resulting Agency Comment Performed at: [facility] [id number] Ruby On Rails Software Developer: Kelsey Cruz MD, Phone: [phone] [facility] LAB URINE ORDERABLES Final Res ult [facility] * Lipid panel (01/10/2023 7:44 AM EDT) Cholesterol, Total 196 (<200) MG/DL [facility] Triglyceride (mg/dL) in Serum/Plasma 83 (<150) MG/DL [facility] HDL Cholesterol 67 (>39) MG/DL [facility] LDL Cholesterol, Calculated 112 (0-130) MG/DL [facility] Non HDL Chol. (LDL+VLDL) 129 (<160) MG/DL [facility] Comment: Testing performed or reported by [facility], a Service of [facility], [address] [place] [address] Dani Choi MD, Global Sourcing Manager DARIN# [id number] Blood Venous blood specimen / Unknown 01/10/2023 7:44 AM EDT 01/10/2023 7:47 AM EDT Jennifer Aden [facility] BLOOD ORDERABLES Final Resul t [facility] [address] [address] * PAP/HPV (03/03/2021 11:01 AM EST) Jennifer Aden [facility] HEALTH MAINTENANCE Final Result * Colonoscopy (02/07/2016) [facility] Colonoscopy 2016 Historical Provider HEALTH MAINTENANCE Edited Result - Final from Last 3 Months or Most Recently Relevant to Health Maintenance [facility] Care Teams Traveler Changer Relationship Specialty Start Date End Date Jeny Long DO [address] [place] [address] PCP - General Family Medicine 04/03/24
--- OUTSIDE RECORDS SUMMARY | 2025-02-13 16:02 | XMS_ITS | Encounter Summary ---
Author Organization [facility] [employer] Address [address] [facility] [address] [place] [address] Care Team Providers Care [employer] Salesperson Name Role Phone Jennifer Aden Primary Care Provider [phone] Jeny Long DO Primary Care Provider [phone] Encounter Details Date Type Department Care Team (Late st Contact Info) Description 09/05/2023 Orders Only [place] [facility] [address] [place], [place] [id number] Jennifer Aden FNP [address] [place] [address] Social History Tobacco Use Types Packs/Day Years Used Date Smoking Tobacco: Never Smokeless Tobacco: Never Alcohol Use Standard Drinks/Week Comments Yes 0 (1 standard drink = 0.6 oz pure alcohol) Few times per month. 1-2 beers, glass of wine. Housing Stability Answer Date Recorded What is your housing situation today? I have manisharon goodrich 09/04/[address] you [...] Recorded Patient Health Questionnaire-2 Score 0 09/04/2023 Comments No Sex and Gender Information Value Date Recorded Sex Assigned at Female 03/15/2022 9:03 AM EST Legal Sex Female 8:40 PM EDT Gender Identity Female 03/15/2022 9:01 AM EST Sexual Orientation Straight 06/07/2022 3: 56 PM EST documented as of this encounter Plan of Treatment Upcoming Encounters Date Type Department Care Team (Late st Contact Info) Description 12/25/2025 3:45 PM EDT Office Visit [place] [facility] [address] [place] [address] Jeny Long DO [address] [place] [address] documented as of this encounter Procedures Procedure Name Priority Date/Time Associated Diagnosis Comments HM PAP/HPV Routine 03/03/2021 11:01 AM EST documented in this encounter Results * HM PAP/HPV (03/03/2021 11:01 AM EST) Jennifer [facility] Final Result documented in this encounter Visit Diagnoses Not on filedocumented in this encounter Care Teams [employer] Salesperson Relationship Specialty Start Date End Date Jennifer Aden FNP [address] [place] [address] PCP - General Family Medicine 03/15/22 04/02/24 Jeny Long DO [address] [place] [address] PCP - General Family Medicine 04/03/24 documented as of this encounter
--- OUTSIDE RECORDS SUMMARY | 2025-02-13 16:02 | XMS_ITS | Encounter Summary ---
Author Organization [employer] Address [address] [facility] [address] [place] [address] Care Team Providers Care Lawn Service Supervisor Name Role Phone Jeny Long DO Primary Care Provider [phone] Encounter Details Date Type Department Care Team (Late st Contact Info) Description 12/23/2024 Orders Only [place] [facility] [address] [place] [address] Jeny Long DO [address] [place] [address] Social History Tobacco Use Types Packs/Day Years [...] 12/25/2025 3:45 PM EDT Office Visit [place] [facility] [address] [place] [address] Jeny Long DO [address] [place] [address] documented as of this encounter Procedures Procedure Name Priority Date/Time Associated Diagnosis Comments URINALYSIS, COMPLETE Routine 12/21/2024 9:03 AM EDT documented in this encounter Results * Urinalysis Complete (12/21/2024 9:03 AM EDT) Urine (Urine, Random) Jeny Long DO LAB URINE ORDERABLES Final Res ult documented in this encounter Visit Diagnoses Not on filedocumented in this encounter Care Teams Lawn Service Supervisor Relationship Specialty Start Date End Date Jeny Long DO [address] [place] [id number] PCP - General Family Medicine 04/03/24 documented as of this encounter
== END 2025-02-13 15:59 | disposition home or self-care (01) ==
LOC: HO.MAMMO 15:58
PROVIDERS: PCP Internal Medicine; Visit Provider Internal Medicine
DX: Z12.31 Encounter for screening mammogram for malignant neoplasm of breast (principal)
CPT/HCPCS: 77063; 77067

== ENCOUNTER → 2025-02-13 16:15 | Outpatient (BNV) | payer OTHER, SELFPAY | PROVIDERS: PCP Internal Medicine; Visit Provider Internal Medicine | DX: Z12.31 Encounter for screening mammogram for malignant neoplasm of breast (principal) | CPT/HCPCS: 77063; 77067 ==